=== PATIENT | female | born 1950 | race Caucasian/White ===

== ENCOUNTER 2017-06-12 08:04 | Day surgery (SDC) | payer OTHER ==
[~2017-06-12] VITALS: Ht 157.5 cm; Wt 107.9 kg
[~2017-06-12 08:04] MED LIST: AMLODIPINE BESYL5 MG PO; AQUAPHOR OINTM105 GM TP; BACTRIM,SEPT1 TABLET PO; CALCIUM 600 +1 EAC2 PO; CHLORTHALIDONE25 MG PO; CIPRO500 MG PO; CLARITIN,ALAVAR10 MG PO; CYANOCOBAL1000 MCG/1 IM; CYANOCOBALAM1000 MCG PO; DAILY VITAMIN1 EAC8 PO; DAYPRO600 MG PO; DIAPER RASH57 GM TP; ENABLEX15 MG PO; ENDOCET 10-3251 EACH PO; FEOSOL45 MG PO; FIBERCON625 MG PO; FOLIC ACID1 MG PO; IRON325 M1 PO; IRON45 MG PO; LEVAQUIN500 MG PO; METAMUCIL MULT425 GM PO; METOPROLOL SUC100 MG PO; METRONIDAZOLE500 MG PO; Martinic PO; NEXIUM40 MG PO; NON-DROWSY ALLE10 MG PO; OXAPROZIN600 MG PO; PANTOPRAZOLE SO40 MG PO; PERCOCET 10/1 TABLET PO; RYBIX ODT50 MG PO; SPIRONOLACTONE25 MG PO; SUPER MULTIVIT1 EACH PO; TOPROL XL100 MG PO; TRAMADOL HCL50 MG PO; TYLENOL EXTRA500 MG PO; TYLENOL WITH C1 EACH PO; Toprol XL PO; VITAMIN B12-FO1 EACH PO; WELCHOL625 MG PO; ZOFRAN4 MG PO
== END 2017-06-12 10:40 | disposition home or self-care (01) ==
LOC: CATH 08:04 → OPR 09:00 → CATH 10:40
PROC: 0JH602Z Insertion of Monitoring Device into Chest Subcutaneous Tissue and Fascia, Open Approach (ICD-10-PCS; principal; 2017-06-12)
DX: R55 Syncope and collapse (principal); R00.1 Bradycardia, unspecified; R42 Dizziness and giddiness; K21.9 Gastro-esophageal reflux disease without esophagitis; G47.30 Sleep apnea, unspecified; D64.9 Anemia, unspecified; I11.0 Hypertensive heart disease with heart failure; I50.9 Heart failure, unspecified
CPT/HCPCS: C1764